=== PATIENT | male | born 1965 | race Caucasian/White ===

== ENCOUNTER 2021-04-10 06:22 | Day surgery (SDC) | payer BC ==
[~2021-04-10] VITALS: Ht 182.9 cm; Wt 92.0 kg
[2021-04-10 07:04] VITALS: BP 126/90; PULSE 86; TEMP 97.8
[2021-04-10 08:10] VITALS: BP 102/78; PULSE 87; TEMP 98.1
--- NOTE | 2021-04-10 08:10 | NUR ---
Patient arrived from [facility] suite on cart with ANG Winkler. Report obtained. Vitals obtained. Patient requested hot coffee and a muffin. Warm blanket provided. is present at this time. Call mendoza is within reach. Will continue to monitor.
[2021-04-10 08:25] VITALS: BP 106/81; PULSE 88
--- NOTE | 2021-04-10 08:25 | NUR ---
Patient is tolerating his muffin and hot coffee well. Denies N/V. States desire to be discharged to have breakfast with his . Vitals obtained. Discharge criteria has been met. IV discontinued at this time. Catheter tip intact. Pressure bandage applied. RN to gather discharge instructions. Call mendoza is within reach.
[2021-04-10 08:40] VITALS: BP 109/82; PULSE 76
--- NOTE | 2021-04-10 08:40 | NUR ---
Discharge instructions reviewed at this time with patient and his . Patient verbalized understanding and signed related paperwork. Vitals obtained and patient changed into personal clothes at this time.
--- NOTE | 2021-04-10 08:45 | NUR ---
Patient was escorted out by ANG Martin via wheelchair to patient entrence. Patient has his personal belongings and his discharge folder with instructions are in his hands. Patient was transferred into the care of his , who is driving.
== END 2021-04-10 08:45 | disposition home or self-care (01) ==
LOC: SDCO 06:22
DX: Z12.11 Encounter for screening for malignant neoplasm of colon (principal); K57.30 Diverticulosis of large intestine without perforation or abscess without bleeding; Z79.899 Other long term (current) drug therapy
CPT/HCPCS: J2704; J7120

== ENCOUNTER → 2023-10-03 | Outpatient (CLI) | payer BC ==
[~2023-10-03] MED LIST: Gadoterate 20 ML VIAL IV ONE
== END ==
LOC: COL.RAD 07:30
DX: R51.9 Headache, unspecified (principal)
CPT/HCPCS: A9575